=== PATIENT | female | born 1955 | race Caucasian/White ===

== ENCOUNTER 2019-02-16 11:50 | Day surgery (SDC) | payer BC ==
[~2019-02-16 11:50] MED LIST: ACETAMINOPHEN 1,000 MG/100 ML BTL IVPB ONE; CEFAZOLIN 2 Gram 2 GM/50 ML BAG IVPB ONE
[2019-02-16] MEDS ORDERED: FENTANYL PF 100MCG/2ML VIAL IV ONE (11:51)
[2019-02-16] MEDS ORDERED: PROPOFOL 10 MG/ML VIAL IV ONE (11:51)
[2019-02-16] MEDS ORDERED: LIDOCAINE 2% MDV (20MG/ML) 20ML VIAL IV ONE (11:51)
[2019-02-16] MEDS ORDERED: RINGERS SOLUTION,LACTATED 1,000 ML IV ONE (12:30)
--- NOTE | 2019-02-17 13:10 | Operative Note ---
DATE OF SURGERY: PREOPERATIVE DIAGNOSIS: Right carpal tunnel syndrome. POSTOPERATIVE DIAGNOSIS: Right carpal tunnel syndrome. OPERATION: Carpal tunnel release. SURGEON: Lee Franklin MD ANESTHESIA: Local and sedation. ANESTHESIA PROVIDER: Tessie Hopkins CRNA COMPLICATIONS: None. ESTIMATED BLOOD LOSS: Minimal. OPERATIVE FINDINGS: Thick, tight carpal tunnel ligament. INDICATION: The patient IS A 63-year-old female who is well known to me. She has had persistent chronic carpal tunnel symptoms. Failed nonoperative treatment. Scheduled for carpal tunnel release. I explained all risks and benefits in detail for her diagnosis and procedure including but not limited to infection, nerve injury, vessel injury, persistent pain, stiffness, numbness, tingling in her hand, need for further procedures, recurrence of her carpal tunnel symptoms. All her questions were answered. The rehab and healing course were outlined and she agreed to proceed. PROCEDURE: The patient brought to the OR and placed in the supine position, prepped for surgery. Sedation was given and her right upper extremity was prepped and draped in sterile fashion. Prepped again with ChloraPrep after it was draped. Intraoperative timeout was performed. Next, we infiltrated the incision just ulnar to the thenar crease with 0.5% Marcaine with epinephrine and 1% Marcaine with epinephrine. Skin and subcutaneous tissues dissected down to the superficial palmar fascia. It was incised longitudinally from distal to proximal. Then identified the distal edge of the transverse carpal ligament. We then inserted a cervical Encarnacion dilator to isolate the median nerve and structures out of the way and then released the ligament from distal to proximal. Continued to release proximally with a curved Metzenbaum scissors with the hand in flexion under direct visualization until we had complete release. Next, irrigated and wound closed with 3-0 nylon. Infiltrated some more local and a sterile dressing applied. The patient tolerated procedure well. No intraoperative complications. Sponge and blade counts correct. Recovery room stable. Neurovascularly intact. Discharge as an outpatient. Remove the dressing in 3 days, follow up in 2 weeks. CC: Dr. mo COTTON
== END 2019-02-16 15:08 | disposition home or self-care (01) ==
LOC: SUR 11:50
PROVIDERS: ATTEND Orthopaedic Surgery
DX: G56.01 Carpal tunnel syndrome, right upper limb (principal); I95.9 Hypotension, unspecified; K21.9 Gastro-esophageal reflux disease without esophagitis
CPT/HCPCS: J7120

== ENCOUNTER 2019-08-10 09:53 | Day surgery (SDC) | payer BC ==
[2019-08-10] MEDS ORDERED: PROPOFOL 10 MG/ML VIAL IV ONE (09:54)
[2019-08-10] MEDS ORDERED: LIDOCAINE 2% MDV (20MG/ML) 20ML VIAL IV ONE (09:54)
[2019-08-10] MEDS ORDERED: FENTANYL PF 100MCG/2ML VIAL IV ONE (09:54)
[2019-08-10] MEDS ORDERED: RINGERS SOLUTION,LACTATED 1,000 ML IV ONE (10:19)
[2019-08-10] MEDS ORDERED: LIDOCAINE 1% MPF 100MG/10ML STERILE-PAK AMPULE SQ ONE (12:44)
[2019-08-10] MEDS ORDERED: BUPIVACAINE 0.5% (5MG/ML) PF 30ML VIAL SQ ONE (12:44)
--- NOTE | 2019-08-12 09:45 | Operative Note ---
DATE OF SURGERY: 08/10/2019 PREOPERATIVE DIAGNOSIS: LEFT TRIGGER THUMB. POSTOPERATIVE DIAGNOSIS: LEFT TRIGGER THUMB. OPERATIVE: LEFT TRIGGER THUMB RELEASE. SURGEON: Lee Franklin M.D. ANESTHESIA: Sedation and local. COMPLICATION: None. ESTIMATED BLOOD LOSS: Minimal. OPERATIVE FINDINGS: Triggering A1 pan. INDICATION: This 64-year-old female who has had persistent triggering in her left thumb for several years. Failed nonoperative treatment. Scheduled for release. I explained all risks and benefits in detail for diagnosis and procedure including, but not limited to infection, nerve injury, vessel injury, persistent pain, numbness and tingling, recurrence of triggering, need for further procedures and all questions were answered. She agreed to proceed. PROCEDURE: The patient was brought to the Operating Room, placed in the supine position, prepped for surgery. Sedation was given. Her left upper extremity and had were prepped and draped in sterile fashion. Her left hand was prepped again with ChloraPrep. Intraoperative time was performed. Next, we localized the A1 pan, made a small volar radial incision over the A1 pan, infiltrated it with 0.5% Marcaine without Epinephrine and 1% Lidocaine without Epinephrine. The skin and subcutaneous tissues were dissected down, we saw the radial digital nerve, we carefully retracted that out of the way and dissected down with Metzenbaum scissors to the A1 pan and we thoroughly identified that and then released it from distal to proximal using a 15 blade and then our Metzenbaum scissors. We verified that there was complete release of passive flexion/extension of the thumb. Irrigated it, closed the skin with 3-0 nylon, injected some more local and a sterile dressing was applied. The patient tolerated the procedure well. No intraoperative complications. Sponge, needle and blade counts were correct. Recovery Room stable. Neurovascular intact. Discharged as an outpatient. Follow-up in two weeks. JOB NUMBER: [id number] [facility]
== END 2019-08-10 13:22 | disposition home or self-care (01) ==
LOC: SUR 09:53
PROVIDERS: ATTEND Orthopaedic Surgery
DX: M65.312 Trigger thumb, left thumb (principal); K21.9 Gastro-esophageal reflux disease without esophagitis
CPT/HCPCS: 26055; 01810; J3010; J0690; J3490; J7120